=== PATIENT | female | born 1970 | race Caucasian/White ===

== ENCOUNTER 2022-03-08 13:24 | Emergency (ER) | payer OTHER, SELFPAY ==
--- NOTE | ~2022-03-08 | XR_ITS ---
EXAMINATION: XR ankle RT min 3V DATE: 03/08/2022 13:59 INDICATION: Right ankle inversion injury. TECHNIQUE: 4 views of right ankle were obtained. COMPARISON: None. FINDINGS: Bone alignment is normal. No fracture. There is mild osteoarthritis of talonavicular joint. There are enthesophytes at the posterior and plantar aspects of calcaneal tuberosity. Ankle soft tis andi swelling is noted. IMPRESSION: 1. No fracture. Reviewed, dictated and finalized at location A. IMPRESSION: 1. No fracture.
--- NOTE | 2022-03-08 13:27 | ED.LOWEXIN ---
HPI - Extremity Injury (Lower) General Chief Complaint: Extremity Injury, Lower Stated Complaint: Right Ankle Injury Time Seen by Provider: 03/08/22 13:27 Source: patient and RN notes reviewed History of Present Illness HPI Narrative: Patient is a 51-year-old female who presents the urgent care with complaints of right ankle pain and swelling. Patient states that she was on vacation and yesterday stepped in a hole while walking across [facility]. Patient states she has been icing, elevating and using ibuprofen. Denies of other injuries from the incident. No other acute complaints. No acute distress noted. Patient aware of the plan of care. Some parts of this dictation were generated by voice recognition software and may contain typographical and/or grammatical inaccuracies. Related Data Home Medications Medication Instructions Recorded Confirmed ubrogepant 50 mg tablet (Ubrelvy) 50 mg PO DAILY PRN Migraine 03/08/22 03/08/22 Headache Allergies Allergy/AdvReac Type Severity Reaction Status Date / Time bee venom protein (honey bee) Allergy Intermediate swelling Verified 03/08/22 14:10 Latex, Natural Rubber Allergy Intermediate itching Verified 03/08/22 14:10 peanut Allergy Intermediate unknown Verified 03/08/22 14:10 Review of Systems Review of Systems: CONSTITUTIONAL: Denies fever, chills, or sweats. EYES: Denies visual changes, redness, or discharge. ENT: Denies rhinorrhea, congestion, sore throat, or otalgia. CARDIOVASCULAR: Denies chest pain, palpitations, or edema. RESPIRATORY: Denies cough or dyspnea. GASTROINTESTINAL: Denies abdominal pain, nausea, vomiting, or diarrhea. GENITOURINARY: Denies dysuria or hematuria. SKIN: Denies rash or itching. MUSCULOSKELETAL: Reports of right ankle pain and swelling NEUROLOGIC: Denies headache, numbness, or weakness. All other systems reviewed are negative, except as documented in HPI. PMFSH Comments At the time of my signature, I reviewed and agree with the nursing past medical, surgical, social, and family history. There is no relevant family history pertinent to the patient complaint. Exam Narrative: GENERAL: This is a well-nourished, well-developed patient, in no apparent distress. HEAD: normocephalic, atraumatic. EYES: PERRL. Sclera clear/white. Vision is grossly intact. EARS: External ears normal NOSE: External nose normal with no obvious nasal discharge, nares without redness, no rhinorrhea. THROAT: Mucous membranes moist NECK: Neck supple, non-tender without lymphadenopathy, masses or thyromegaly. SKIN: warm, intact with no suspicious lesions or rash, good texture and turgor. NEURO: awake, alert, and oriented to person, place and time. There were no obvious focal neurologic abnormalities. EXTREMITIES: Mild to moderate edema and tenderness noted to the lateral right malleolus. Positive strong right pedal pulse with capillary refill less than 2 seconds. Range of motion not tested due to pain and swelling. Course Course Level of Care: Express Care Visit Vital Signs Vital signs: Vital Signs Temperature 98.9 F 03/08/22 13:50 Pulse Rate 90 03/08/22 13:50 Respiratory Rate 16 03/08/22 13:50 Blood Pressure 126/62 03/08/22 13:50 Pulse Oximetry 98 03/08/22 13:50 Oxygen Delivery Room Air 03/08/22 13:50 Temperature 98.9 F 03/08/22 13:50 Pulse Rate 90 03/08/22 13:50 Respiratory Rate 16 03/08/22 13:50 Blood Pressure 126/62 03/08/22 13:50 Pulse Oximetry 98 03/08/22 13:50 Oxygen Delivery Room Air 03/08/22 13:50 Reviewed MDM - Extremity Injury (Lower) MDM Narrative Medical decision making narrative: Reviewed x-ray results with the patient. She is aware that there is no fracture or deformity to the ankle. Advised the patient to wear a supportive shoe as well as an Kenny wrap for the next 3 to 5 days or until normal activity as tolerated. Limit strenuous activity. Limit weightbearing activity. Use Tylenol/ibuprofen/ice
[2022-03-08 13:50] VITALS: BP 126/62; PULSE 90; RESP 16; TEMP 37.2; O2SAT 98
--- NOTE | 2022-03-08 14:00 | PC.NURSE ---
PT DECLINED WHEELCHAIR TO RADIOLOGY
== END 2022-03-08 14:24 | disposition home or self-care (01) ==
PROVIDERS: Emergency Provider Nurse Practitioner Family; PCP Nurse Practitioner Family
DX: S93.401A Sprain of unspecified ligament of right ankle, initial encounter (principal); S96.911A Strain of unspecified muscle and tendon at ankle and foot level, right foot, initial encounter; W17.2XXA Fall into hole, initial encounter; M79.7 Fibromyalgia; Z86.16 Personal history of COVID-19
CPT/HCPCS: 73610; 99213; G0463